=== PATIENT | female | born 1995 | race Caucasian/White ===

== ENCOUNTER 2025-01-13 15:53 | Outpatient (CLI) | payer BC, SELFPAY ==
--- NOTE | ~2025-01-13 | US_ITS ---
EXAMINATION: US OB /maternal detail DATE: 01/13/2025 16:32 INDICATION: anatomic survey. TECHNIQUE: Real-time ultrasound of the pelvis was performed. COMPARISON: None. FINDINGS: There is a single living fetus in vertex presentation. The placenta is anterior, 5.5 cm from the cer vix. The cervical length is 4.6 cm on transabdominal images, which is normal. heart rate is 145 beats per minute (bpm). The amniotic fluid index is , which is normal. The following biometric data were obtained: Biparietal diameter (BPD): 4.5 cm; head circumference (HC): 16.9 cm; abdominal circumference (AC): 14 .1 cm; femur length (FL): 2.8 cm. These measurements are concordant. Estimated weight is 275 g +/- 41 g, which correlates with the 70th percentile when 06/11/25 is u sed as estimated date of delivery. As single measurements, these parameters are each equal to the following estimated gestational ages: BPD: 19 weeks 4 days. HC: 19 weeks 4 days. AC: 19 weeks 3 days. FL: 18 weeks 4 days. estimated gestational age based solely on measurements from this exam is 19 weeks 2 days +/- 1 weeks 2 days. IMPRESSION: 1. Single living fetus in vertex presentation. 2. Estimated weight is 275 g +/- 41 g, which correlates with the 70th percentile when 06/11/25 is used as estimated date of delivery. 3. Normal anatomic survey. Reviewed, dictated and finalized at location A. HARGE RN IMPRESSION: 1. Single living fetus in vertex presentation. 2. Estimated weight is 275 g +/- 41 g, which correlates with the 70th pe rcentile when 06/11/25 is used as estimated date of delivery. 3. Normal anatomic survey.
== END 2025-01-13 15:54 | disposition home or self-care (01) ==
LOC: MICIMG 15:54
PROVIDERS: PCP Advanced Practice Midwife; Visit Provider Advanced Practice Midwife
DX: Z36.9 Encounter for antenatal screening, unspecified (principal); Z3A.19 19 weeks gestation of pregnancy
CPT/HCPCS: 76805